=== PATIENT | male | born 1955 | race Caucasian/White ===

== ENCOUNTER → 2017-12-26 | Outpatient (CLI) | payer OTHER ==
[~2017-12-26] VITALS: Ht 180.3 cm; Wt 136.1 kg
[~2017-12-26] MED LIST: ACID REDUCER20 MG PO; FISH OIL 1,001000 M2 PO; NORCO 5-325 TA1 EACH PO; UNISOM SLEEP AI25 MG PO
--- NOTE | ~2017-12-26 | P ---
[facility] [place] [address] PROCEDURE REPORT Name: HIEUROBERTA DE LA CRUZ Room #: REG Rock Green#: [id number] Admission: 12/26/17 Attend Phys: Erwin Rodriguez Discharge: Date of : 57 Report #: [id number] THIS REPORT FOR: //name// CC: Erwin Blair MD DATE OF SERVICE: 12/26/2017 PROCEDURE PERFORMED: Colonoscopy with polypectomies. HISTORY OF PRESENT ILLNESS: The patient is a 62-year-old male with previous history of colon polyps removed 5 years ago, here for routine followup. Denies any symptoms. No family history of colon cancer. DESCRIPTION OF PROCEDURE: The risks and benefits of the procedure were explained to the patient, those risks including, but not limited to bleeding, perforation, the risk of sedation. He understood these risks and gave informed consent. Sedation was given using propofol per anesthesia. Next, a digital rectal exam was initially performed, which was normal. Next, using a standard Fujinon colonoscope, the scope was placed in the patient's anus and advanced under direct vision to the cecum. The overall prep was good. The cecum and ileocecal valve were normal in appearance. In the ascending colon, there were two 4-6 mm sessile polyps, both removed by snare cautery. Two further polyps were noted in the transverse colon again. Both removed by snare cautery ranging in size from 5-6 mm. Descending colon was normal. Multiple scattered diverticula were noted in the sigmoid colon. Also noted was a 4 mm sessile polyp removed by snare cautery. The rectal mucosa was normal. On retroflexion, small nonbleeding internal hemorrhoids were noted, otherwise normal colonoscopy. The scope was then withdrawn and the procedure terminated. The patient tolerated the procedure well. IMPRESSION: 1. Five small colonic polyps as described above. 2. Sigmoid diverticulosis. 3. Internal hemorrhoids. 4. Otherwise, normal colonoscopy. RECOMMENDATIONS: 1. Await biopsy results. 2. Repeat colonoscopy in [address] [address] PROCEDURE REPORT Name: ROBERTA WISE Room #: CAITLIN Green#: [id number] Admission: 12/26/17 Attend Phys: Erwin Rodriguez Discharge: Date of : 57 Report #: [id number] Thank you for allowing me to participate in his care. <ELECTRONICALLY SIGNED> By: Erwin Carpenter MD 12/29/17 [id number] Erwin Carpenter MD /nt
== END ==
LOC: GI 08:03
DX: Z12.11 Encounter for screening for malignant neoplasm of colon (principal); D12.2 Benign neoplasm of ascending colon; D12.3 Benign neoplasm of transverse colon; Z86.010 Personal history of colon polyps; K63.5 Polyp of colon; K57.30 Diverticulosis of large intestine without perforation or abscess without bleeding; K64.8 Other hemorrhoids; K21.9 Gastro-esophageal reflux disease without esophagitis; F17.210 Nicotine dependence, cigarettes, uncomplicated; Z90.49 Acquired absence of other specified parts of digestive tract; Z98.890 Other specified postprocedural states; Z79.899 Other long term (current) drug therapy
CPT/HCPCS: 62110; 62900